=== PATIENT | male | born 1980 | race Two or more races ===

== ENCOUNTER 2016-02-13 12:05 | Inpatient (IN) | payer MEDICAID ==
[2016-02-13 12:47] LABS: VENOUS BLOOD GAS HCO3 10.2 mmol/L (22.0-27.0)
[2016-02-13 12:47] LABS: ABSOLUTE NEUTROPHIL COUNT 4.3 K/mm3 (1.8-7.7); BASO % 0.8 % (0.2-1.0); HEMATOCRIT 46.7 % (32.0-52.0); HEMOGLOBIN 16.4 gm/l (14.0-18.0); IMM NEUT% 0.4 % (0-1); LYMPH # 0.8 (1.0-4.8); LYMPH % 14.4 % (15-45); MEAN CELL VOLUME 84.1 fl (80.0-94.0); MEAN CORPUSCULAR HEMOGLOBIN 29.5 pg (27.0-31.0); MEAN CORPUSCULAR HGB CONC 35.1 g/dl (33.0-37.0); MEAN PLATELET VOLUME 11.6 fl (7.4-10.4); MONO # 0.2 (0.0-0.8); MONO % 3.6 % (4-12); NEUT % 80.8 % (43-75); PLATELET COUNT 210 K/mm3 (130-400); RED CELL DISTRIBUTION WIDTH 13.5 % (11.5-14.5)
[2016-02-13 12:48] LABS: VENOUS BLOOD GAS BASE EXCESS -17.6 mmol/L (-2.0-2.0)
[2016-02-13] MEDS ORDERED: SODIUM CHLORIDE 0.9% 1,000 ML ONE ×2 (12:48→13:21)
[2016-02-13 12:57] LABS: ACETONE,SERUM 3+ (NEGATIVE)
[2016-02-13 13:06] LABS: ALB/GLOB RATIO 1.5 (>1.0); ALBUMIN 4.7 gm/dL (3.5-5.7); CALCIUM 9.4 mg/dL (8.6-10.3)
[2016-02-13] MEDS ORDERED: INSULIN REGULAR HUMAN (DOSE) 100 UNITS in SODIUM CHLORIDE 0.9% 99 ML IV PRN ×2 (14:00→14:35)
[2016-02-13 14:12] LABS: SPECIFIC GRAVITY 1.025 (1.001-1.030); URINE APPEARANCE CLEAR; URINE BILIRUBIN NEGATIVE (NEGATIVE); URINE COLOR YELLOW; URINE GLUCOSE (UA) 3+ (NEGATIVE); URINE PROTEIN 1+ (NEGATIVE); URINE UROBILINOGEN NORMAL (0-1 mg/dl)
[2016-02-13 14:13] LABS: URINE BLOOD NEGATIVE (NEGATIVE); URINE LEUKOCYTE ESTERASE NEGATIVE (NEGATIVE); URINE NITRITE NEGATIVE (NEGATIVE)
[2016-02-13] MEDS ORDERED: SODIUM CHLORIDE 0.9% 1,000 ML IV SCH (14:13)
[2016-02-13] MEDS ORDERED: ACETAMINOPHEN 325 MG TABLET PO PRN (14:13)
[2016-02-13] MEDS ORDERED: MENTHOL/CETYLPYRD 1 EACH LOZENGE PO PRN (14:13)
[2016-02-13] MEDS ORDERED: SODIUM CHLORIDE 0.9% 100 ML IV PRN (14:13)
[2016-02-13] MEDS ORDERED: BLISTEX LIPSTICK 1 EACH TP PRN (14:13)
[2016-02-13] MEDS ORDERED: MAGNESIUM HYDROXIDE 30 ML UDCUP PO PRN (14:13)
[2016-02-13] MEDS ORDERED: PUMP TUBING ONE (14:20)
[2016-02-13 14:25] LABS: URINE BACTERIA RARE; URINE EPITHELIAL CELLS RARE /hpf; URINE RBC 0 /hpf; URINE WBC NEG /hpf
[2016-02-13] MEDS ORDERED: POTASSIUM CHLORIDE 40 MEQ in SODIUM CHLORIDE 0.9% 500 ML IV ONE (15:30)
[2016-02-13] MEDS: D5 1/2NS with 20 mEq KCL 1,000 ML IV SCH ×2 (16:21→22:01)
[2016-02-13 16:40] VITALS: BMI 24.1
--- NOTE | 2016-02-13 16:40 | HP ---
JENNY FREEMAN [id number] : 1980 DATE OF ADMISSION: February 13, 2016 IDENTIFICATION: Mr. Templeton is a 35-year-old with no local physician. CHIEF COMPLAINT: Polydipsia and polyuria for two to three weeks. HISTORY OF PRESENT ILLNESS: Mr. Templeton reports that he has been feeling poorly having a great deal of thirst and urination for two to three weeks. He has had a sour taste in his mouth and has had weight loss. He does not know how much. Because of these symptoms, he came to [facility] today where he was found to have hyperglycemia and ketoacidosis. He has no prior history of diabetes. He does not report any recent acute illness or other events brought this on. He has been started on an insulin drip and referred to the hospitalist service. REVIEW OF SYSTEMS: HEENT: No headache or faintness. No problem with ears, eyes or nose. Sour taste in the mouth as above. RESPIRATORY: No cough or dyspnea. CARDIAC: He has had palpitations. GASTROINTESTINAL: He has had reflux and had vomiting two to three days ago but none today. No abdominal pain, diarrhea or constipation. GENITOURINARY: No dysuria although he has had frequency and polyuria. MUSCULOSKELETAL: He does complain of cramps in the posterior aspect of his legs, both thighs and calves. CONSTITUTIONAL: No fevers or chills but as above, he does think he has been losing weight. PAST MEDICAL HISTORY: No previous significant medical problems. PAST SURGICAL HISTORY: None. ALLERGIES: NONE KNOWN. MEDICATIONS: None. HABITS: No tobacco or drugs. He drinks an occasional beer, two or three beers total per month. SOCIAL HISTORY: and lives with his in [place]. He works for the [employer] FAMILY HISTORY: He does have an older brother who developed diabetes at about 40 years of age. PHYSICAL EXAMINATION: GENERAL: This is a well-developed, well-nourished 35-year-old gentleman in no acute distress. VITAL SIGNS: Temperature 98.1 degrees Fahrenheit, blood pressure 155/99, pulse 106, respiratory rate 20, oxygen saturation 99% on room air. Blood pressure and pulse improved to 132/78 and 92 while still in the emergency department. HEENT: Atraumatic. Pupils are equal, round and reactive. Extraocular muscles are intact. Oropharynx is dry. Lips are dry. Dentition in good condition. NECK: Supple, no adenopathy. CHEST: Clear to auscultation. HEART: Is regular, no murmur. ABDOMEN: Is soft, nontender, normal bowel tones. EXTREMITIES: Good peripheral pulses. No cyanosis, clubbing or edema. NEUROLOGIC: Alert and oriented, no focal deficits. LABORATORY DATA: White blood cell count 5.3, hemoglobin and hematocrit 16.4 and 46.7, platelets 210. Venous blood gas pH 7.135, PCO2 30.9, PO2 52.9, bicarbonate 10.2. Sodium 137, potassium 3.7, chloride 103, CO2 11, BUN 11, creatinine 1.0, glucose 464, alkaline phosphatase 197, otherwise liver enzymes are normal. Urinalysis, specific gravity 1.025, 1+ protein, 3+ glucose, 3+ ketones, otherwise negative. Serum acetone is 3+. ASSESSMENT: Mr. Templeton is a 35-year-old with new onset diabetes and diabetic ketoacidosis. He is relatively thin and with the ketoacidosis is behaving more like a type 1 diabetic than a type 2 diabetic. PLAN: 1. Admit to intermediate care. 2. Aggressive hydration with normal saline. Transition to half-normal with potassium replacement when blood sugar is controlled. 3. Insulin drip for 12 to 24 hours and then transition to subcutaneous insulin. 4. Watch for hypokalemia and replacement potassium aggressively as this is probably the cause of his leg cramps. 5. Venous thromboembolism risk is low. He does not require prophylaxis. 6. FULL CODE status. 7. 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
[2016-02-13] MEDS: PANTOPRAZOLE 40 MG TABLET DR PO SCH (17:17)
[2016-02-13 19:20] LABS: CALCIUM 8.5 mg/dL (8.6-10.3)
[2016-02-13] MEDS: DOCUSATE SODIUM 100 MG CAPSULE PO SCH (21:53)
[2016-02-14] MEDS: D5 1/2NS with 20 mEq KCL 1,000 ML IV SCH ×2 (02:04→08:33)
[2016-02-14 06:20] LABS: ALB/GLOB RATIO 1.6 (>1.0); ALBUMIN 3.4 gm/dL (3.5-5.7); MAGNESIUM 1.8 mg/dL (1.9-2.7)
[2016-02-14] MEDS ORDERED: POTASSIUM CHLORIDE 40 MEQ in SODIUM CHLORIDE 0.9% 500 ML IV ONE (08:00)
[2016-02-14] MEDS: INSULIN GLARGINE (DOSE) 100 UNITS/ML UNIT SUB-Q SCH (08:08)
--- NOTE | 2016-02-14 08:51 | PDOC43 ---
- Subjective Chief Complaint: Pollyuria and pollydipsia Feeling well today, no excessive thirst, no more leg cramps. - Objective Vital Signs Temperature 98.2 F 02/14/16 07:00 Pulse Rate 60 02/14/16 07:00 Respiratory Rate 12 02/14/16 07:00 Blood Pressure 122/76 02/14/16 07:00 O2 Saturation by Pulse Oximetry 99 02/14/16 07:00 Oxygen Delivery Method Room Air Oxygen Flow Rate 0 Intake and Output 02/13/16 02/14/16 02/15/16 06:59 06:59 06:59 Intake Total 5142 Output Total 1600 Balance 3542 General: Alert, Oriented x3, Cooperative, No Acute Distress HEENT: Mucous membr. moist/pink Lungs: Clear to Auscultation Bilaterally Cardiovascular: Regular Rate and Rhythm Abdomen: Soft, Normal Bowel Sounds, No Tenderness, No Masses Extremities: Normal Pulses, No Edema Skin: Normal Color Neurological: Normal Speech Psych/Mental Status: Normal Mood Laboratory 02/14/16 05:30 02/14/16 02/14/16 02/14/16 08:09 05:55 05:30 Estimated GFR 130 H POC Capillary Glucose 196 H 160 H Calcium Magnesium 1.8 L Alkaline Phosphatase 135 H Total Protein 5.5 L Albumin 3.4 L Globulin 2.1 L 02/14/16 02/14/16 02/13/16 04:04 02:01 23:51 Estimated GFR POC Capillary Glucose 156 H 183 H 140 H Calcium Magnesium Alkaline Phosphatase Total Protein Albumin Globulin 02/13/16 02/13/16 02/13/16 21:51 20:04 18:51 Estimated GFR 130 H POC Capillary Glucose 154 H 335 H Calcium 8.5 L Magnesium Alkaline Phosphatase Total Protein Albumin Globulin 02/13/16 02/13/16 02/13/16 18:04 16:18 15:03 Estimated GFR POC Capillary Glucose 229 H 181 H 278 H Calcium Magnesium Alkaline Phosphatase Total Protein Albumin Globulin 02/13/16 14:06 Estimated GFR POC Capillary Glucose 348 H Calcium Magnesium Alkaline Phosphatase Total Protein Albumin Globulin Current Medications: Current meds reviewed in EMR. - Problems: Assessment/Plan (1) DKA (diabetic ketoacidosis) Qualifiers: Diabetes mellitus complication detail: without coma Status: Acute Assessment/Plan: With new onset diabetes which may be type 1. C-peptide and A1c pending. BG is well controlled, transition to basal and bolus insulin treatment and start diabetic education today. (2) Hypokalemia Status: Acute Assessment/Plan: Replace (3) Hypomagnesemia Status: Acute Assessment/Plan: replace orally (4) Leg cramps Qualifiers: Laterality: bilateral Qualifier Code: (R25.2) Cramp and spasm Status: Acute Assessment/Plan: Due to potassium depletion, resolved. VTE Prophylaxis: not indicated Disposition: Recommend patient establish care at [facility] ([facility] )
[2016-02-14] MEDS: INSULIN ASPART (DOSE) 100 UNITS/1 ML SUB-Q SCH ×4 (11:47→17:12)
[2016-02-14] MEDS: DOCUSATE SODIUM 100 MG CAPSULE PO SCH ×2 (11:48→21:10)
[2016-02-14] MEDS: INSULIN ASPART (DOSE) 100 UNITS/1 ML SUB-Q PRN ×2 (11:48→17:12)
[2016-02-14] MEDS: Magnesium Oxide 400 MG TABLET PO SCH ×2 (11:51→21:12)
[2016-02-14] MEDS: PANTOPRAZOLE 40 MG TABLET DR PO SCH (11:51)
[2016-02-15 05:50] LABS: CALCIUM 8.4 mg/dL (8.6-10.3); MAGNESIUM 1.9 mg/dL (1.9-2.7)
[2016-02-15] MEDS: INSULIN ASPART (DOSE) 100 UNITS/1 ML SUB-Q PRN ×2 (08:05→13:55)
[2016-02-15] MEDS: INSULIN ASPART (DOSE) 100 UNITS/1 ML SUB-Q SCH ×2 (08:05→13:55)
[2016-02-15] MEDS: PANTOPRAZOLE 40 MG TABLET DR PO SCH (08:06)
[2016-02-15] MEDS: DOCUSATE SODIUM 100 MG CAPSULE PO SCH (08:06)
[2016-02-15] MEDS: INSULIN GLARGINE (DOSE) 100 UNITS/ML UNIT SUB-Q SCH (08:06)
[2016-02-15] MEDS: Magnesium Oxide 400 MG TABLET PO SCH (08:06)
[2016-02-15] MEDS ORDERED: POTASSIUM CHLORIDE 20 MEQ TAB.PRT.SR PO ONE (10:15)
[2016-02-15 10:59] VITALS: BP 115/64
[2016-02-15 14:07] LABS: A1C-GLYCOHEMOGLOBIN 2.1 g/dl; HEMOGLOBIN-GLYCO 16.5 g/dl
--- NOTE | 2016-02-15 15:37 | DS ---
JENNY FREEMAN DATE OF ADMISSION: February 13, 2016 DATE OF DISCHARGE: January 14, 2017 ADMIT DIAGNOSES: 1. Diabetic ketoacidosis. 2. New onset diabetes mellitus presumed type 1. DISCHARGE DIAGNOSES: 1. Diabetic ketoacidosis. 2. New onset diabetes mellitus presumed type 1. HISTORY OF PRESENT ILLNESS: Please see Dr. Rodriguez's note for details. Briefly, Mr. Templeton is an otherwise healthy 35-year-old male who has been feeling poorly for about two to three weeks prior to his admission here. He was brought to the emergency room and was found to be profoundly hyperglycemic with ketoacidosis. He was referred to the hospitalist service for diabetic ketoacidosis with new onset presumed diabetes type 1. HOSPITAL COURSE: He was admitted, started on diabetic ketoacidosis protocol with aggressive IV fluids, electrolyte replacement and an insulin drip. He did have a rapid improvement. By hospital day one he was transitioned off the drip and on to subcutaneous insulin. We did undergo diabetic education. At this point by day of discharge, he again was feeling well. He was stable on his subcutaneous insulin regimen. He did again receive diabetic education as well as instructions on how to measure blood sugars and administer insulin. We have elected to discharge him with plans for close outpatient followup. He will need continued instruction and followup as he is appearing to have difficulty absorbing all the information regarding his new diagnosis. DISCHARGE MEDICATIONS: 1. Lantus 20 units subcutaneous daily. 2. NovoLog insulin moderate sliding scale as needed. DISCHARGE FOLLOW UP: Will be at [facility] within this next week. All clinics are actually closed throughout this weekend due to the holiday, but our care management nurse will contact him tomorrow to facilitate a timely appointment. This has been discussed with him, and he is anticipating a call tomorrow to arrange this. Further care as dictated by clinical course. Cc: [facility]
== END 2016-02-15 15:45 | disposition home or self-care (01) | DRG 639 ==
LOC: ED 12:05 → ICU 13:58
PROVIDERS: ADMIT Family Medicine; ATTEND Family Medicine
DX: E13.10 Other specified diabetes mellitus with ketoacidosis without coma (principal); E11.65 Type 2 diabetes mellitus with hyperglycemia